=== PATIENT | female | born 1970 | race Caucasian/White ===

== ENCOUNTER 2019-01-06 07:19 | Inpatient (IN) ==
--- NOTE | 2018-11-26 13:16 | PAT Medication Instructions ---
Medication Instructions Date of Service November 26, 2018 Home Medications calcium carbonate [Calcium 500] 1,000 mg PO DAILY cyanocobalamin (vitamin B-12) [Vitamin B-12] 1,000 mcg PO DAILY duloxetine [Cymbalta] 60 mg PO QAM multivitamin [Multiple Vitamins] 2 tab PO DAILY DO NOT take the morning of surgery calcium carbonate [Calcium 500] 1,000 mg PO DAILY cyanocobalamin (vitamin B-12) [Vitamin B-12] 1,000 mcg PO DAILY multivitamin [Multiple Vitamins] 2 tab PO DAILY Take morning of surgery With a small sip of water, OTHERWISE NOTHING TO EAT OR DRINK AFTER MIDNIGHT: duloxetine [Cymbalta] 60 mg PO QAM Other Notes If you have any questions please call us at [phone] or [phone] or [phone] or [phone]
--- NOTE | 2018-11-27 11:20 | Anesthesiology Consultation ---
Date of Service November 27, 2018 Assessment & Plan (1) Encounter for pre-operative examination: Chart Review Chart Review: Acceptable Risk for Surgery (pending review of confirmed preop EKG (still unconfirmed at time of review)) and Patient seen in Pre Admission Testing Teaching & Discussion Pre-Anesthesia Teaching/Discussion Notes: Instructed NPO after midnight before surgery,except medications with 15 cc of water. Medication instructions provided according to the PAT guidelines. History Surgery Operation Date: 01/06/19 07:00 Proposed Procedures p Left Total Knee Arthroplasty - Clark Wagoner MD Height/Weight Height: 5 ft 2 in Weight: 85.2 kg Allergies Allergy/AdvReac Type Severity Reaction Status Date / Time No Known Allergies Allergy Verified 11/20/18 08:33 Medications Home Medications Medication Instructions Recorded Confirmed Last Taken calcium carbonate [Calcium 500] 1,000 mg PO DAILY 11/20/18 11/20/18 Unknown cyanocobalamin (vitamin B-12) 1,000 mcg PO DAILY 11/20/18 11/20/18 Unknown [Vitamin B-12] duloxetine [Cymbalta] 60 mg PO QAM 11/20/18 11/20/18 11/20/18 multivitamin [Multiple Vitamins] 2 tab PO DAILY 11/20/18 11/20/18 Unknown Past Medical History Medical History Obesity Osteoarthritis Exercise / Class Metabolic Activity II 4-5 Yardwork/Stairs/Walk up hill Past Surgical History Surgical History History of carpal tunnel surgery of left wrist History of carpal tunnel surgery of right wrist History of cholecystectomy History of gastric bypass History of hysterectomy Past Anesthesia History No Hx of Anesthesia Complications (EXCEPT POST-OP NAUSEA) and No Family Hx of Anesthesia Complications History of PONV History of PONV and Hx of Motion Sickness Social History Smoking Status: Never smoker Do You Dip or Chew Tobacco: No Hx Alcohol Use: Yes Alcohol type: wine alcohol intake frequency: a few times a month Hx Substance Use: No substance use type: does not use Review of Systems Patient denies chest pain, shortness of breath, dyspnea on exertion, reflux, cough, wheezing, palpitations. Physical Exam Vital Signs VITALS BP 107/ P 80 TEMP 98.2 SP02 98%RA RESP 20 PHYSICAL Full neck and c-spine range of motion. Full TMJ range of motion. TMD 3.5 finger breaths Mallampati Score 2 Dentition: intact Lungs: clear throughout to auscultation Cardiac: regular rate and rhythm, no murmurs noted Spine: normal Carotid arteries: negative bruit Extremities: no edema Testing Laboratory Results 11/27/18 11:30 11/27/18 11:30 11/27/18 11/27/18 11/27/18 11:30 11:30 11:30 PT 10.4 INR 1.0 APTT 25.2 Hemoglobin A1c 5.6 Urine Color Yellow Urine Appearance Clear Urine pH 5.0 Ur Specific [place] 1.023 Urine Protein Negative Urine Glucose (UA) Negative Urine Ketones Trace H Urine Nitrite Negative Ur Leukocyte Esterase Negative 11/27/18 T&S O+Ab- Electrocardiogram Date: 11/27/18 NSR at 68bpm (unconfirmed report). Chest X-Ray Date: 11/27/18 Findings: + NAD
--- NOTE | 2018-11-27 12:06 | XRay Report ---
XR chest Pre-admission PA/Lat CLINICAL HISTORY: pat preoperative evaluation COMPARISON STUDY: No previous studies for comparison. FINDINGS: The bones soft tissues and hemidiaphragms are normal. The cardiomediastinal silhouette is n ormal. The lungs are clear. The pulmonary vasculature is normal. IMPRESSION: Negative chest. The above report was generated using voice recognition software. It may contain grammatical, syntax or spelling errors. Electronically signed by: Moris River M.D. 11/27/2018 12:05 PM
[2018-11-27 12:35] LABS: Appearance Urine Clear (Clear); Bilirubin Urine Negative (Negative); Blood Urine Negative (Negative); Color Urine Yellow; Glucose Urine UA Negative (Negative); Ketones Urine Trace (Negative); Leukocyte Esterase Urine Negative (Negative); Nitrite Urine Negative (Negative); Protein Urine Negative (Negative); Specific Gravity Urine 1.023 (1.000-1.030); Urobilinogen Urine Negative (Negative)
[2018-11-27 12:36] LABS: Basophils # (auto) 0.03 K/uL (0-0.2); Basophils % (auto) 0.5 %; Eosinophils % (auto) 5.3 %; Hematocrit (blood only) 36.8 % (37-47); Hemoglobin 11.9 g/dL (12.0-16.0); Immature Granulocytes # (auto) 0.01 K/uL (0.00-0.02); Immature Granulocytes % (auto) 0.2 %; Lymphocytes # (auto) 1.78 K/uL (1.2-3.4); Lymphocytes % (auto) 31.7 %; Mean Corpuscular Hgb Conc 32.3 g/dL (32-36); Mean Platelet Volume 9.6 fL (7.4-10.4); Monocytes # (auto) 0.25 K/uL (0.11-0.59); Monocytes % (auto) 4.4 %; Neutrophils # (auto) 3.25 K/uL (1.4-6.5); Neutrophils % (auto) 57.9 %; Platelet Count 245 K/uL (130-400); RDW Coefficient of Variation 17.7 % (11.5-14.5); RDW Standard Deviation 50.3 fL (36.4-46.3); Red Blood Count 4.72 M/uL (4.2-5.4); White Blood Count 5.62 K/uL (4.8-10.8)
[2018-11-27 12:44] LABS: Albumin Level 3.3 gm/dl (3.4-5.0); BUN Creatinine Ratio 31.5 (10-20); Calcium 8.9 mg/dl (8.5-10.1); Creatinine Clr Calc Pharmacy 77.4 ml/min; Est GFR (African American) 88.2; Est GFR (Non-African American) 76.1; Potassium 4.7 mmol/L (3.5-5.1)
[2018-11-27 12:45] LABS: Partial Thromboplastin Ratio 0.9; Partial Thromboplastin Time 25.2 Seconds (21.0-31.0); Prothrombin Time 10.4 Seconds (9.0-12.0)
[2018-11-27 12:48] LABS: Estimated Average Glucose 114 mg/dl; Hemoglobin A1C 5.6 % (4.5-5.6)
--- NOTE | 2019-01-05 17:18 | History and Physical Report ---
DATE OF ADMISSION: 01/06/2019 CHIEF COMPLAINT: Chronic left knee pain and instability. HISTORY OF PRESENT ILLNESS: This is a 48-year-old female patient of Dr. Wagoner'marcio complaining of chronic left knee pain and instability, longstanding, now progressively getting worse. The patient has failed conservative treatment including intraarticular injections, viscosupplementation, anti-inflammatories, the use of a brace, the use of a sleeve and a home exercise program. The patient has been diagnosed with end-stage osteoarthritis per clinical and radiographic exam and wishes to proceed with a left total knee arthroplasty. PAST MEDICAL HISTORY: Osteoarthritis, obesity. SOCIAL HISTORY: Nonsmoker, nondrinker. PAST SURGICAL HISTORY: Bilateral carpal tunnel releases, hysterectomy, gastric bypass and cholecystectomy. FAMILY HISTORY: Noncontributory. REVIEW OF SYSTEMS: Chronic left knee pain and instability. Otherwise, denies any shortness of breath, chest pain, nausea, vomiting or any other joint complaints. MEDICATIONS: Duloxetine 60 mg daily, calcium 500 mg daily, iron 18 mg daily, Naprosyn 250 mg as needed, [place] 5/325 as needed. ALLERGIES: No known drug allergies. PHYSICAL EXAMINATION: GENERAL: Well-developed, well-nourished 48-year-old female in no acute distress. She is alert and oriented x3 and pleasant. HEENT: Normocephalic, atraumatic. Extraocular motions are intact. Pupils are equal and reactive to light. HEART: Regular rate and rhythm, no murmurs. LUNGS: Clear. ABDOMEN: Soft, nontender, bowel sounds present. EXTREMITIES: Left knee reveals a limited range of motion of 0-120 degrees. She has a neutral alignment. She has medial joint line tenderness with crepitation. She has 5/5 strength with pain. NEUROLOGIC: Neurovascularly, she is intact in her left lower extremity. DIAGNOSES: Left knee end-stage osteoarthritis, obesity. PLAN: The patient was advised of her diagnosis. Indications, risks, benefits, postop course have all been reviewed. The patient wished to proceed with a left total knee arthroplasty. Necessary consent forms, preoperative testing and clearances will be obtained.
[~2019-01-06 07:19] MED LIST: ACETAMINOPHEN 500 MG TAB PO SCH; BUPIVACAINE 0.5 % 5 MG/1 ML PF 10ML VIAL ONE; CEFAZOLIN 2000MG 2,000 MG/15 ML SYR IV SCH; CeleBREX 200 MG CAP PO SCH; FAMOTIDINE 20 MG TAB PO SCH; GABAPENTIN 900 MG DOSE PO SCH; LR 500ML BOLUS, THEN 15ML/HR IV SCH; METOCLOPRAMIDE HCL 10 MG TABLET PO SCH; ROPIVACAINE 0.5% 5 MG/ML 30 ML VIAL ONE; ROPIVACAINE 0.5% HCL/PF 150 MG, BUPIVACAINE 0.5% MPF 30 ML, EPINEPHrine 30MG/30ML (OR U... INSTIL SCH; TRANEXAMIC ACID 1,000 MG **IV Intra-op IV SCH; TRANEXAMIC ACID 1,000 MG **IV Pre-op IV SCH; dexAMETHasone 4 MG TAB PO SCH
[2019-01-06] MEDS ORDERED: MIDAZOLAM HCL 1 MG/ML 2ML VIAL ONE ×2 (08:03→11:18)
[2019-01-06] MEDS ORDERED: fentaNYL citrate 100 MCG/2 ML VIAL ONE (08:03)
--- NOTE | 2019-01-06 08:38 | History & Physical Bridge Note ---
Date of Service January 06, 2019 History & Physical Bridge Note I have examined the patient, reviewed the History & Physical and in the interval since the performance of the History & Physical I have noted the following changes of clinical significance: no changes noted
[2019-01-06] MEDS ORDERED: BACITRACIN INJ 50,000 UNIT VIAL ONE (09:21)
[2019-01-06] MEDS ORDERED: ORTHO JOINT ANESTHETIC ONE (09:21)
[2019-01-06] MEDS ORDERED: HYDROmorphone INJ 1 MG/ML SYRINGE IV PRN (09:35)
[2019-01-06] MEDS ORDERED: fentaNYL citrate 100 MCG/2 ML VIAL IV PRN (09:35)
[2019-01-06] MEDS ORDERED: ATROPINE SULFATE 0.1 MG/ML 10ML SYR IV PRN (09:35)
[2019-01-06] MEDS ORDERED: ePHEDrine sulfate 50 MG/ML AMP IV PRN (09:35)
[2019-01-06] MEDS ORDERED: PROPOFOL IV EMULSION 10 MG/ML 20 ML VIAL IV ONE (10:03)
--- NOTE | 2019-01-06 11:49 | Post Operative Brief Note ---
Immediate Post Op Note v1 Date of Surgery January 06, 2019 Pre & Post Diagnosis Operation Date: 01/06/19 10:15 Pre-Op Diagnosis: Left Knee End-Stage Osteoarthritis Post-Op Diagnosis: Left Knee End-Stage Osteoarthritis Procedure Operation Date: 01/06/19 10:15 Actual Procedures p Left Total Knee Arthroplasty(Left) - lCark Wagoner MD Surgeon Clark Wagoner MD Farm Products Shipper Moris PARKS Estimated Blood Loss 5 Findings Consistent with Post-Op Diagnosis Specimens Bone cuts Drains Hemovac Drain Anesthesia Type MAC Spinal Regional Complications none Disposition Accompanied Patient To Recovery: No Disposition: Recovery Room Overlapping Procedure I was present for: the critical portions of procedure. Back up surgeon: was not required during procedure.
--- NOTE | 2019-01-06 12:34 | XRay Report ---
LEFT KNEE 2 VIEWS History: Left total knee arthroplasty. Degenerative arthritis. Postop. FINDINGS: The patient is status post a left total knee arthroplasty. The hardware is intact. No fract ure or dislocation. Skin jagruti and surgical drains are in place. IMPRESSION: Left total knee arthroplasty. No evidence for hardware complication. Electronically signed by: Ron Del Valle M.D. 01/06/2019 12:32 PM
[2019-01-06] MEDS ORDERED: BISACODYL 10 MG SUPP PR PRN (13:33)
[2019-01-06] MEDS ORDERED: MAGNESIUM HYDROXIDE SUSP 30 ML UDC PO PRN (13:33)
[2019-01-06] MEDS ORDERED: HYDROmorphone INJ 0.5 MG/0.5 ML SYR IV PRN (13:33)
[2019-01-06] MEDS ORDERED: ONDANSETRON INJ 2 MG/ML 2 ML VIAL IV PRN (13:33)
[2019-01-06] MEDS ORDERED: NALOXONE HCL 0.4 MG/1 ML VIAL/CARP IV PRN (13:33)
--- NOTE | 2019-01-06 14:16 | Anesthesiology Progress Note ---
Date of Service January 06, 2019 Anesthesia Post Procedure Vital Signs Vital Signs: Temp Pulse Pulse Pulse Resp BP Pulse Ox 01/06/19 13:54 58 L 18 104/72 98 01/06/19 13:25 36.4 C L 64 14 100/62 95 01/06/19 13:10 36.4 C L 61 13 108/70 98 01/06/19 13:00 63 22 101/68 99 01/06/19 12:50 60 18 103/65 97 01/06/19 12:40 63 19 101/64 99 01/06/19 12:30 63 15 99/64 L 96 01/06/19 12:20 66 16 91/66 L 98 01/06/19 12:12 36.6 C 68 18 95/63 L 98 01/06/19 07:52 36.5 C 65 20 107/68 99 Transfer of Care Handoff Completed per policy Notes Mental Status: alert / awake / arousable and participated in evaluation Patient Amnestic to Procedure: Yes Nausea / Vomiting: adequately controlled Pain: adequately controlled Airway Patency, RR, SpO2: stable & adequate BP & HR: stable & adequate Hydration State: stable & adequate Neuraxial Anesthesia: was administered and sensory block is resolving Anesthetic Complications: no major complications apparent
[2019-01-06] MEDS: ACETAMINOPHEN 500 MG TAB PO SCH ×2 (14:39→21:04)
[2019-01-06] MEDS: SODIUM CHLORIDE 0.9% 1000ML 1,000 ML IV SCH (14:39)
--- NOTE | 2019-01-06 16:26 | Consultation ---
Date of Consultation January 06, 2019 Assessment & Plan (1) Post-operative state: S/p left TKA 01/06 Pain management, bowel regimen, dvt proph per primary Monitor for acute blood loss - cbc am (2) History of gastric bypass: continue home vitamin regimen - multivitamin, B12, calcium Medicine will sign of at this time. Please call with any questions Supervising Physician Co-Signing Physician Notes ROUTE JUMPER Physician Supervision Note: I discussed with Malini Powell ROUTE JUMPER and agree with findings and plan as documented in the note. Any exceptions or clarifications are listed here: None Patient is no complaints or problems Vital signs are stable Heart is regular lungs are clear Left leg is still mildly amnestic but she can move it well is good distal capillary refill Patient has no active medical problems at this time her home meds consist of vitamins and medication as directed to her pain which she had remedied by her surgery. We will have the chart checks but for sign off at this time Documented By: Tanmay Leal History of Present Illness Attending Physician: Clark Wagoner MD History of Present Illness Ms. Melgar is post left TKA today. She is drowsy but easily arousable. No pain or other complaints. 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 Family: mother had cancer Allergies Allergy/AdvReac Type Severity Reaction Status Date / Time No Known Allergies Allergy Verified 01/06/19 07:49 Home Medications Home Medications Medication Instructions Recorded Confirmed Type calcium carbonate [Calcium 500] 1,000 mg PO DAILY 11/20/18 01/06/19 History cyanocobalamin (vitamin B-12) 1,000 mcg PO DAILY 11/20/18 01/06/19 History [Vitamin B-12] duloxetine [Cymbalta] 60 mg PO QAM 11/20/18 11/20/18 History multivitamin [Multiple Vitamins] 2 tab PO DAILY 11/20/18 01/06/19 History iron 18 mg PO DAILY 01/06/19 01/06/19 History Patient History Medical History Obesity Osteoarthritis Surgical History History of carpal tunnel surgery of left wrist History of carpal tunnel surgery of right wrist History of cholecystectomy History of gastric bypass History of hysterectomy Social History Preferred Language: Tajik Communication Ability: Effective Drafter Topographical Required: No Beliefs That Will Affect Care: None Current Living Situation: Alone Other Information That Helps Us Care for You: No Feels Safe at Home: Yes Smoking Status: Never smoker Do You Dip or Chew Tobacco: No Hx Alcohol Use: Yes Alcohol type: wine Hx Substance Use: No Review of Systems Review of Systems: All systems reviewed & are unremarkable except as noted in HPI & below Physical Exam Physical Exam: General: no distress Eyes: normal inspection, PERLL Respiratory: chest non tender, clear to auscultation, normal breath sounds, no respiratory distress, no accessory muscle use Cardiac: regular rate and rhythm, no rub or gallop, no murmur, no edema, no jvd GI/: active bowel sounds, no abd pain or tenderness, soft, non distended Extremities: normal range of motion, normal strength, non tender Neuro/Psych: alert and oriented x 3, normal mood and affect Skin: normal color, dry Results & Data Vital Signs (Past 12 Hours) Vital Signs Temp Pulse Pulse Pulse Resp BP Pulse Ox 01/06/19 15:29 36.5 C 62 17 99/63 L 98 01/06/19 14:27 70 18 107/68 99 01/06/19 13:54 58 L 18 104/72 98 01/06/19 13:25 36.4 C L 64 14 100/62 95 01/06/19 13:10 36.4 C L 61 13 108/70 98 01/06/19 13:00 63 22 101/68 99 01/06/19 12:50 60 18 103/65 97 01/06/19 12:40 63 19 101/64 99 01/06/19 12:30 63 15 99/64 L 96 01/06/19 12:20 66 16 91/66 L 98 01/06/19 12:12 36.6 C 68 18 95/63 L 98 01/06/19 07:52 36.5 C 65 20 107/68 99 PG Care Time/CCT Total # of Minutes Spent Total Time Spent with Patient: Total time spent is greater than 50% in coordination of care (as documented) at patient's floor/unit and/or counseling patient:
[2019-01-06] MEDS: CEFAZOLIN 2000MG 2,000 MG/15 ML SYR IV SCH (17:46)
[2019-01-06] MEDS: CeleBREX 200 MG CAP PO SCH (20:37)
[2019-01-06] MEDS: ASPIRIN 81 MG ECTAB PO SCH (20:38)
[2019-01-06] MEDS: OXYCODONE HCL IR 5 MG TAB (IMMEDIATE RELEASE) PO PRN (20:38)
[2019-01-06] MEDS: SENNA 8.6 MG TAB PO SCH (20:38)
[2019-01-06] MEDS: DOCUSATE SODIUM 100 MG CAP PO SCH (20:38)
[2019-01-07] MEDS: SODIUM CHLORIDE 0.9% 1000ML 1,000 ML IV SCH (00:39)
[2019-01-07] MEDS: CEFAZOLIN 2000MG 2,000 MG/15 ML SYR IV SCH (02:56)
[2019-01-07] MEDS: ACETAMINOPHEN 500 MG TAB PO SCH ×3 (05:18→21:15)
[2019-01-07 05:50] LABS: Hemoglobin 9.9 g/dL (12.0-16.0); Mean Corpuscular Hgb Conc 31.9 g/dL (32-36); Mean Corpuscular Volume 78.7 fL (80-100); Mean Platelet Volume 9.9 fL (7.4-10.4); Platelet Count 215 K/uL (130-400); RDW Coefficient of Variation 16.8 % (11.5-14.5); RDW Standard Deviation 48.8 fL (36.4-46.3); Red Blood Count 3.94 M/uL (4.2-5.4); White Blood Count 10.93 K/uL (4.8-10.8)
[2019-01-07 06:13] LABS: BUN Creatinine Ratio 25.3 (10-20); Calcium 8.5 mg/dl (8.5-10.1); Creatinine Clr Calc Pharmacy 101.7 ml/min; Est GFR (Non-African American) 102.7; Potassium 3.9 mmol/L (3.5-5.1)
[2019-01-07] MEDS: OXYCODONE HCL IR 5 MG TAB (IMMEDIATE RELEASE) PO PRN ×5 (06:43→19:32)
[2019-01-07] MEDS: ASPIRIN 81 MG ECTAB PO SCH ×2 (08:04→20:40)
[2019-01-07] MEDS: CeleBREX 200 MG CAP PO SCH ×2 (08:04→20:40)
[2019-01-07] MEDS: DULOXETINE HCL 60 MG CAP PO SCH (08:04)
[2019-01-07] MEDS: CALCIUM CARBONATE 1250MG TAB PO SCH (08:05)
[2019-01-07] MEDS: DOCUSATE SODIUM 100 MG CAP PO SCH ×2 (08:05→20:39)
[2019-01-07] MEDS: CYANOCOBALAMIN 500 MCG TABLET (VITAMIN B-12) PO SCH (08:05)
[2019-01-07] MEDS: MULTIVITAMIN TAB PO SCH (08:06)
--- NOTE | 2019-01-07 08:13 | Anesthesiology Progress Note ---
Date of Service January 07, 2019 Anesthesia Post Procedure Vital Signs Vital Signs: Temp Pulse Pulse Resp BP Pulse Ox 01/07/19 06:48 36.6 C 55 L 18 102/68 100 01/07/19 03:33 36.5 C 56 L 15 95/63 L 96 01/06/19 23:27 37 C 60 18 102/64 98 01/06/19 18:56 36.9 C 78 16 109/69 96 01/06/19 16:36 36.9 C 65 16 105/67 97 01/06/19 15:29 36.5 C 62 17 99/63 L 98 01/06/19 14:27 70 18 107/68 99 01/06/19 13:54 58 L 18 104/72 98 01/06/19 13:25 36.4 C L 64 14 100/62 95 01/06/19 13:10 36.4 C L 61 13 108/70 98 01/06/19 13:00 63 22 101/68 99 01/06/19 12:50 60 18 103/65 97 01/06/19 12:40 63 19 101/64 99 01/06/19 12:30 63 15 99/64 L 96 01/06/19 12:20 66 16 91/66 L 98 01/06/19 12:12 36.6 C 68 18 95/63 L 98 Pain Intensity Left Knee: Pain Intensity: 3 Notes Mental Status: alert / awake / arousable and participated in evaluation Nausea / Vomiting: adequately controlled Pain: adequately controlled Airway Patency, RR, SpO2: stable & adequate BP & HR: stable & adequate Hydration State: stable & adequate Neuraxial Anesthesia: sensory block resolved
[2019-01-07] MEDS ORDERED: NON-FORMULARY MEDICATION (Iron 18 MG) PO SCH (09:00)
[2019-01-07] MEDS ORDERED: MULTIVITAMIN TAB PO SCH ×2 (09:00)
--- NOTE | 2019-01-07 09:43 | Orthopedic Progress Note ---
Date of Service January 07, 2019 Assessment & Plan (1) Left knee DJD: POD #1, Left TKA PT/ OT DVT proph- ASA D/ Cplans- Home w OPPT As per medicine. Subjective POD #1, Doing well, denies sob, cp, n/v. pain controlled well. Physical Exam Physical Exam: Left knee dressings c/d/i, no drainage, toes/ ankle mobile, no calf tenderness. A&Ox3. Results & Data Vital Signs (Past 12 Hours) Vital Signs Temp Pulse Resp BP Pulse Ox 01/07/19 06:48 36.6 C 55 L 18 102/68 100 01/07/19 03:33 36.5 C 56 L 15 95/63 L 96 01/06/19 23:27 37 C 60 18 102/64 98
--- NOTE | 2019-01-07 17:49 | Operative Report ---
Post Operative Report Pre & Post Diagnosis Operation Date: 01/06/19 10:15 Pre-Op Diagnosis: Left Knee End-Stage Osteoarthritis Post-Op Diagnosis: Left Knee End-Stage Osteoarthritis Procedure Operation Date: 01/06/19 10:15 Actual Procedures p Left Total Knee Arthroplasty(Left) - Clark Wagoner MD Surgeon Clark Wagoner MD Abrasive Grader Moris PARKS Estimated Blood Loss 5 Findings Consistent with Post-Op Diagnosis Specimens Bone cuts Drains 2 Hemovac Anesthesia Type MAC Spinal Regional Complications none Disposition Accompanied Patient To Recovery: No Disposition: Recovery Room Indications 48-year-old female with end-stage osteoarthritis of left knee mainly patellofemoral joint but has some tricompartmental osteoarthritis. Also has osteoarthritis in her right knee. She is been through extensive conservative management including injections physical therapy bracing. Patient's [id number] patellofemoral joint. Description of Procedure Patient taken to the operating room placed supine on the operating table and anesthetized under spinal regional MAC anesthesia. Exam under anesthesia demonstrated flexion contracture 15 degrees flexion to 95 degrees stiff knee [id number] patellofemoral crepitation.. A pneumatic tourniquet was placed about the thigh of the left lower extremity. The left lower extremity was p repped and draped in usual fashion. Leg was elevated exsanguinated with an Esmarch bandage and the pneumatic was raised to 300 mm mercury. An anterior incision was made across the left knee. The skin was incised longitudinally subcutaneous flaps were elevated and an incision was made through the medial retinaculum extending up into the mid third of the quadriceps tendon and extended down to the medial tibial tubercle. Intra-articular findings demonstrated severe grade 4 patellofemoral DJD with bone loss patella ridging on the surfaces. She had a grade 4 medial femoral condyle lesion tricompartmental osteophytes chronic partial ACL tear degenerative in nature. The knee was exposed by excising the infrapatellar fat pad, excising the meniscal remnants and anterior cruciate ligaments, PCL was preserved with a recessed to the posterior edge of the tibia. Any inflamed synovial tissue was resected. The fat pad over the anterior femur was resected for placement of the component in that area. The lateral synovial bands were release. Appropriate releases were performed to balance ligaments. The femur was exposed. The custom femoral cutting block was pinned in position. The distal femoral cutting block was applied. The distal femoral cut was made with the oscillating saw. The size 6 4-in-1 cutting block was placed. The anterior and posterior chamfer cuts were made. The knee was extended and a subperiosteal peel lateral release was performed around the patella. The patella width was measured. width was reproduced using freehand cut technique making the cut just at the level of the most deficient area of bone loss. The 29 millimeter symmetrical patella was used. 3 drill holes are made for the pegs. The tibia was exposed. An external tibial cutting guide was positioned to make a perpendicular cut to the long axis of the tibia. the proximal cut was made with the oscillating saw. All osteophytes were resected. The lamina pit manager was used to assess ligamentous balance and the ligaments were balanced in extension and flexion. We had to recut the tibia to get appropriate extension flexion gaps. The tibia was reexposed and measured for a size C tibial component. This was externally rotated in line with the tibial tubercle and the fixation pins were drilled. The proximal tibia was fashioned with the drill and punch. The size 6 femoral trial was inserted. The trial MC inserts were used. The 10 mm insert gave balanced ligaments through full range of motion. The patella tracked centrally. the trials were removed. The orthomix anesthetic cocktail was injected per protocol. The knee was then copiously irrigated with pulsatile lavage antibiotic solution with bacitracin. The final components were cemented with Simplex cement. The final components were Biomet Kieran persona left capital CR size 6 narrow femoral component, C tibia, medial congruent 10 mm tibial polyethylene and 29 mm symmetrical patella. While the cement cured with the knee in full extension the Betadine soak was used per protocol. After the cement cured, the knee joint was copiously irrigated with antibiotic solution with bacitracin. 2 drains were brought out laterally and connected to a Hemovac. The quadriceps tendon and medial retinaculum were closed with interrupted [id number] #1 Vicryl sutures. The knee was taken through a full range of motion and repair was secure. The subcutaneous tissues were closed with 2-0 Vicryl sutures and skin was closed with jagruti. Sterile dressings were applied and the patient tolerated the procedure well. Moris PARKS my physician assistant unit forester, assisted in soft tissue retraction instrument management leg positioning the closure and will participate in the postoperative care of the patient. I attest to the content of the Intraoperative Record and any orders documented therein. Any exceptions are noted below.
[2019-01-07] MEDS: SENNA 8.6 MG TAB PO SCH (20:39)
[2019-01-08] MEDS: OXYCODONE HCL IR 5 MG TAB (IMMEDIATE RELEASE) PO PRN ×2 (04:32→08:33)
[2019-01-08] MEDS: ACETAMINOPHEN 500 MG TAB PO SCH (05:37)
[2019-01-08 06:19] LABS: Hematocrit (blood only) 29.6 % (37-47); Hemoglobin 9.3 g/dL (12.0-16.0); Mean Corpuscular Hgb Conc 31.4 g/dL (32-36); Mean Corpuscular Volume 80.4 fL (80-100); Mean Platelet Volume 9.2 fL (7.4-10.4); Platelet Count 199 K/uL (130-400); RDW Coefficient of Variation 17.4 % (11.5-14.5); RDW Standard Deviation 51.2 fL (36.4-46.3); Red Blood Count 3.68 M/uL (4.2-5.4); White Blood Count 7.33 K/uL (4.8-10.8)
[2019-01-08 06:48] LABS: BUN Creatinine Ratio 24.4 (10-20); Calcium 7.8 mg/dl (8.5-10.1); Creatinine Clr Calc Pharmacy 86.4 ml/min; Est GFR (African American) 100.3; Est GFR (Non-African American) 86.6; Potassium 4.3 mmol/L (3.5-5.1)
[2019-01-08] MEDS: CYANOCOBALAMIN 500 MCG TABLET (VITAMIN B-12) PO SCH (07:31)
[2019-01-08] MEDS: CALCIUM CARBONATE 1250MG TAB PO SCH (07:31)
[2019-01-08] MEDS: MULTIVITAMIN TAB PO SCH (07:32)
[2019-01-08] MEDS: DULOXETINE HCL 60 MG CAP PO SCH (07:32)
[2019-01-08] MEDS: DOCUSATE SODIUM 100 MG CAP PO SCH (07:32)
[2019-01-08] MEDS: CeleBREX 200 MG CAP PO SCH (07:32)
[2019-01-08] MEDS: ASPIRIN 81 MG ECTAB PO SCH (07:33)
--- NOTE | 2019-01-08 07:38 | Orthopedic Progress Note ---
Date of Service January 08, 2019 Assessment & Plan (1) Left knee DJD: POD #2, Left TKA PT/ OT DVT proph- ASA D/ C plans- Home w OPPT today. As per medicine. Supervising Physician Co-Signing Physician Notes CUTTER BRAKE LINING Physician Supervision Note: I discussed with Malini Powell CUTTER BRAKE LINING and agree with findings and plan as documented in the note. Any exceptions or clarifications are listed here: None Patient is no complaints or problems Vital signs are stable Heart is regular lungs are clear Left leg is still mildly amnestic but she can move it well is good distal capillary refill Patient has no active medical problems at this time her home meds consist of vitamins and medication as directed to her pain which she had remedied by her surgery. We will have the chart checks but for sign off at this time Documented By: Tanmay Leal Subjective POD #2 Doing well, did well in PT, denies sob, cp, n/v, pain controlled well. Physical Exam Physical Exam: Left knee silverlon c/d/i, no drainage, toes/ ankle mobile, no calf tenderness, A&Ox3. Results & Data Vital Signs (Past 12 Hours) Vital Signs Temp Pulse Resp BP Pulse Ox 01/07/19 23:00 36.8 C 61 16 111/73 97 01/07/19 22:40 63 16 108/68 99
--- NOTE | 2019-01-21 09:00 | Discharge Summary ---
HISTORY OF PRESENT ILLNESS: This is a 48-year-old female patient of Dr. Wagoner'marcio complaining of chronic left knee pain, longstanding, now progressively getting worse. The patient has been diagnosed with end-stage osteoarthritis. She failed conservative treatment and elected to proceed with a left total knee arthroplasty. PAST MEDICAL HISTORY: Osteoarthritis and obesity. POSTOPERATIVE COURSE: The patient underwent a left total knee arthroplasty on 01/06/2019. She was followed closely with medical consultation, DVT prophylaxis in the form of aspirin, physical therapy and pain control. The patient did very well postoperatively and was discharged home on postoperative day #2. PHYSICAL EXAMINATION: On discharge, left knee Silverlon dressing was clean, dry and intact. There was no redness or drainage. She had no calf tenderness. Negative Homans sign. Toes and ankles were mobile. Neurologically and neurovascularly, she is intact in her left lower extremity. DIAGNOSES: Status post left total knee arthroplasty, osteoarthritis and obesity. PLAN: The patient was discharged home with outpatient physical therapy. She will continue her preadmission medications with the addition of aspirin twice daily for DVT prophylaxis. She will also take pain medications as needed as prescribed. The patient will follow up as scheduled as an outpatient.
== END 2019-01-08 12:14 | disposition home or self-care (01) | DRG 470 ==
LOC: ASU 07:19 → 3E 12:17